=== PATIENT | female | born 1955 | race Caucasian/White ===

== ENCOUNTER 2018-08-19 07:17 | Day surgery (SDC) | payer OTHER ==
[2018-08-06 18:12] VITALS: BMI 37.3
[2018-08-19] MEDS ORDERED: MIDAZOLAM HCL 2 MG/2 ML SINGLE DOSE VIAL ONE ×2 (08:12→08:25)
[2018-08-19] MEDS ORDERED: ONDANSETRON 4 MG/2 ML VIAL ONE (08:15)
[2018-08-19] MEDS ORDERED: LIDOCAINE HCL 2% (50ML VIAL) INF ONE (08:39)
[2018-08-19 10:02] VITALS: TEMP 97.8
[2018-08-19 13:35] VITALS: BP 112/74; PULSE 71
--- NOTE | 2018-08-21 09:30 | OP ---
DATE OF OPERATION: 08/19/2018 PREOPERATIVE DIAGNOSES: 1. Right carpal tunnel syndrome. 2. Right thumb trigger finger. POSTOPERATIVE DIAGNOSES: 1. Right carpal tunnel syndrome. 2. Right thumb trigger finger. OPERATIVE PROCEDURE: 1. Right carpal tunnel release. 2. Right thumb trigger finger release. SURGEON: Jesus Soto MD ANESTHESIA: Local with sedation. COMPLICATIONS: None. ESTIMATED BLOOD LOSS: Minimal. INDICATION FOR PROCEDURE: The patient is a 63-year-old female with the above finding indicated for operative treatment. Risks, benefits, and alternatives were discussed with the patient at length. Proper informed consent was obtained. PROCEDURE: After preoperative identification of the patient and correct operative site, patient was brought to the operating room and placed supine on the table, all bony prominences were padded. Sedation was given by the anesthesiologist. Local anesthesia was given with 2% lidocaine. Right upper extremity was prepped and draped in the usual sterile fashion. A well-padded tourniquet was placed over the sterile prep. Esmarch bandage used to exsanguinate right upper extremity. Tourniquet was inflated to 250 mmHg. Transverse incision made over the thumb A1 clifton. Incision taken sharply through skin with blunt and sharp dissection through subcutaneous tissue. A1 clifton was identified and divided longitudinally. Patient flexed and extended her finger, and no further triggering was noted. Second incision was made over the proximal aspect of the palm. Incision was taken sharply through skin, with blunt and sharp dissection of the subcutaneous tissues. Palmar fascia was divided longitudinally. Transverse carpal ligament along with the distal 4 cm of the antecubital fascia was divided longitudinally under direct visualization with loupe magnification. The provided complete release of the median nerve at the wrist. Wound was repaired with 5-0 fast-absorbing plain gut suture. Sterile dressings were applied. The patient was brought to the recovery room, tolerated the procedure well. Nikkie GONZALEZ/[id number]
== END 2018-08-19 10:20 | disposition home or self-care (01) ==
LOC: FASU 07:17
PROVIDERS: ATTEND Orthopaedic Surgery Hand Surgery
PROC: 0LN70ZZ Release Right Hand Tendon, Open Approach (ICD-10-PCS; principal; 2018-08-19 08:40)
PROC: 01N50ZZ Release Median Nerve, Open Approach (ICD-10-PCS; 2018-08-19 08:40)
DX: G56.01 Carpal tunnel syndrome, right upper limb (principal); M65.311 Trigger thumb, right thumb
CPT/HCPCS: 82962